=== PATIENT | male | born 1955 | race Caucasian/White ===

== ENCOUNTER 2018-10-01 01:05 | Emergency (ER) | payer OTHER ==
[~2018-10-01] VITALS: Ht 188 cm; Wt 75.7 kg
[2018-10-01] MEDS ORDERED: KETOROLAC 60MG/2ML VIAL IM STA (03:58)
[2018-10-01 04:28] LABS: CLARITY URINE CLOUDY (CLEAR); COLOR URINE YELLOW (YELLOW); KETONES URINE TRACE (NEGATIVE); LEUKOCYTE ESTERASE URINE TRACE (NEGATIVE); NITRITE URINE NEGATIVE (NEGATIVE); OCCULT BLOOD URINE NEGATIVE (NEGATIVE); PROTEIN URINE NEGATIVE (NEGATIVE); SPECIFIC GRAVITY URINE 1.031 (1.005-1.030)
[2018-10-01 07:20] VITALS: BP 128/84
== END 2018-10-01 07:30 | disposition home or self-care (01) ==
LOC: ER 01:05
DX: M54.5 Low back pain (principal); I10 Essential (primary) hypertension; Z87.442 Personal history of urinary calculi; Z90.49 Acquired absence of other specified parts of digestive tract
CPT/HCPCS: 76770; 81003; 96372; 99284; J1885